=== PATIENT | male | born 2000 | race Caucasian/White ===

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

== ENCOUNTER 2018-03-06 21:20 | Emergency (ER) | payer OTHER ==
[~2018-03-06] VITALS: Ht 182.9 cm; Wt 151.5 kg
[2018-03-06 21:24] VITALS: BP 160/82; Ht 182.9 cm; Wt 151.5 kg
== END 2018-03-06 22:17 | disposition home or self-care (01) ==
LOC: ED 21:20
DX: J45.909 Unspecified asthma, uncomplicated (principal); J06.9 Acute upper respiratory infection, unspecified
CPT/HCPCS: J7512; J7620

== ENCOUNTER 2020-03-03 19:49 | Emergency (ER) | payer OTHER ==
[~2020-03-03] VITALS: Ht 182.9 cm; Wt 161.0 kg
[2020-03-03 20:01] VITALS: Ht 182.9 cm; Wt 161.0 kg
[2020-03-03 21:26] VITALS: BP 133/74
== END 2020-03-03 21:26 | disposition home or self-care (01) ==
LOC: ED 19:49
DX: M54.40 Lumbago with sciatica, unspecified side (principal); J45.909 Unspecified asthma, uncomplicated